=== PATIENT | female | born 1990 | race African-American/Black ===

== ENCOUNTER 2017-02-27 10:02 | Emergency (ER) | payer OTHER ==
[~2017-02-27 10:02] MED LIST: BACTRIM DS TABL1 TA2 PO; DIFLUCAN PO; NO MEDICATIONS; PYRIDIUM PO
[2017-02-27 10:10] LABS: URINE SOURCE CLEAN CATCH
[2017-02-27 10:13] LABS: URINE BILIRUBIN NEG (NEG); URINE BLOOD NEG (NEG); URINE COLOR YELLOW; URINE GLUCOSE NEG (NORM); URINE KETONE NEG (NEG); URINE LEUKOCYTE ESTERASE 1+ (NEG); URINE NITRATE NEG (NEG); URINE PH 5.5 (5-8); URINE PROTEIN NEG (NEG); URINE SPECIFIC GRAVITY 1.025 (1.003-1.035); URINE UROBILINOGEN 0.2 MG/DL (NORM)
[2017-02-27 10:17] LABS: MICRO INDICATED? YES; URINE APPEARANCE SL HAZY
[2017-02-27 10:19] LABS: URINE BACTERIA 3+ (NEG); URINE SQUAMOUS EPITHELIAL CELL MANY /[HPF]
[2017-02-27 10:20] LABS: URINE MUCUS PRESENT; URINE YEAST PRESENT
== END 2017-02-27 10:26 | disposition home or self-care (01) ==
LOC: SED 10:02
PROVIDERS: Physician Assistant
DX: N39.0 Urinary tract infection, site not specified (principal); B37.9 Candidiasis, unspecified
CPT/HCPCS: 81003; 84703; 99283

== ENCOUNTER 2017-04-12 11:09 | Emergency (ER) | payer OTHER | END 2017-04-12 11:52 | disposition home or self-care (01) | LOC: SED 11:09 | DX: B36.0 Pityriasis versicolor (principal) | CPT/HCPCS: 82947; 99282 ==